=== PATIENT | male | born 1955 | race Asian ===

== ENCOUNTER 2017-09-26 00:09 | Day surgery (SDC) | payer OTHER ==
[~2017-09-26] VITALS: Ht 180.3 cm; Wt 71.2 kg
[~2017-09-26 00:09] MED LIST: CHOLESTEROL MED; SIMV-54 PO
[2017-09-26 06:30] VITALS: BP 124/75
[2017-09-26] MEDS ORDERED: NORMOSOL R SOLN(*) 1000 ML BAG 1,000 ML IV PRN (07:05)
[2017-09-26] MEDS ORDERED: MIDAZOLAM 2 MG/2 ML VIAL IVP PRN (07:05)
[2017-09-26] MEDS ORDERED: LIDOCAINE/SOD BICARB 8.4% SYR ID ONE (07:05)
[2017-09-26 08:48] VITALS: BP 86/52
--- NOTE | 2017-09-26 08:50 | Short(Outpt) Discharge Summary ---
Discharge Summary Reason for Hosp/Final Diag: (1) Colon cancer screening Status: Chronic Hospital Course & Plan: Colonoscopy with polypectomy x2 completed without problems. Departure Discharge to: Home, Self Care Discharge Instructions Home Meds Active Scripts Simvastatin (SIMVASTATIN) 40 Mg Tablet, 1 TAB PO HS, #90 TAB Prov:LM TERRELL MD 07/16/17 Diet: Regular Activity: As Tolerated Special Instructions: Your colonoscopy was completed without any problems and your prep was excellent (Good Job!!). I removed 2 polyps from your colon. We sent these for pathologic analysis and my office will call you in the next week to let you know the pathology results and when your next colonoscopy should be (likely in 5 years). UMM CHEN MD Sep 26, 2017 08:50
[2017-09-26 09:00] VITALS: BP 87/57
[2017-09-26 09:15] VITALS: BP 106/69
[2017-09-26 09:22] VITALS: BP 102/69
[2017-09-26 09:25] VITALS: BP 98/80
== END 2017-09-26 09:50 | disposition home or self-care (01) ==
LOC: OR 00:09
PROVIDERS: ATTEND Surgery
DX: Z12.11 Encounter for screening for malignant neoplasm of colon (principal)
CPT/HCPCS: 88305

== ENCOUNTER → 2018-02-12 | Outpatient (CLI) | payer OTHER ==
[~2018-02-12] MED LIST changes: +LEVO-3 PO; +MOMR ENA
--- NOTE | 2018-02-12 08:58 | RADIOLOGY IMAGING REPORT ---
FACILITY: [facility] PATIENT NAME: Yulissa Cunha : 1955 MR: [id number] V: [id number] EXAM DATE: ORDERING PHYSICIAN: GABBY MCDONNELL TECHNOLOGIST: [place] [facility] [place]: Yulissa Cunha : 1955 Visit/Account:[id number] Date of Sevice: 02/12/2018 EXAMINATION: Abdominal ultrasound complete: 02/12/2018 7:32 AM HISTORY: elevated liver function test. COMPARISON STUDIES: none. FINDINGS: Gallbladder: no stones or sludge. Liver: Normal size. Echogenicity is unremarkable. Capsular contours appear smooth. No focal findin g. Common duct: Under 4 mm Pancreas: Partial obscuration of the tail by bowel gas. Visualized portions are normal. Spleen: Not seen. Kidneys: negative Upper abdominal aorta and IVC: negative Ascites: none IMPRESSION: 1. Unremarkable hepatobiliary assessment by ultrasound. 2. Incomplete visualization of the pancreatic tail. 3. Spleen was not visualized and may be absent. Report Dictated By: Yfn Valle MD at 02/12/2018 8:37 AM Report E-Signed By: Yfn Valle MD at 02/12/2018 8:54 AM WSN:[email or web address]
== END ==
LOC: US 07:29
PROVIDERS: ATTEND Internal Medicine
DX: R79.89 Other specified abnormal findings of blood chemistry (principal); R35.0 Frequency of micturition
CPT/HCPCS: 76700

== ENCOUNTER → 2018-03-12 | Outpatient (CLI) | payer OTHER ==
[~2018-03-12] MED LIST changes: +TRIA15OI20 TP
== END ==
LOC: CARD 13:49
PROVIDERS: ATTEND Internal Medicine
DX: R07.9 Chest pain, unspecified (principal)

== ENCOUNTER → 2018-04-09 | Outpatient (CLI) | payer OTHER ==
[~2018-04-09] MED LIST changes: +REGADENOSON 0.4 MG/5 ML SYR ONE
--- NOTE | 2018-04-09 14:35 | RADIOLOGY IMAGING REPORT ---
[place] [facility] [place] Yulissa Cunha : 1955 MR: [id number] V: [id number] EXAM DATE: ORDERING PHYSICIAN: GABBY MCDONNELL TECHNOLOGIST: Location: [facility] Patient: Yulissa Cunha : 1955 Visit/Account:[id number] Date of Sevice: 04/09/2018 REGADENOSON (LEXISCAN) MYOCARDIAL PERFUSION IMAGING. EXAMINATION: Single isotope SPECT imaging with regadenoson infusion and gated SPECT imaging. DATE OF EXAMINATION: April 09, 2018. REQUESTING PHYSICIAN:KECIA INDICATION: Chest discomfort PROCEDURE: After informed consent the patient received an intravenous injection of Tc-99m sestamibi followed at an appropriate time interval by rest imaging. The patient then subsequently received an intravenous infusion of 0.4 mg of regadenoson per protocol without complication. Resting heart rate was 57 bpm with a peak heart rate of 78 bpm. Blood pressure at rest was 127/83 and following infusi on was 122/77 . Baseline EKG demonstrates sinus rhythm with a right bundle branch block. There were no EKG changes of ischemia following infusion. Non-specific symptoms were reported. The patient th en received an intravenous injection of Tc-99m sestamibi followed by stress imaging. DOSE of Tc-99m sestamibi (mCi): REST: 10.8 STRESS: 29.4 RAW DATA: Examination of the summed raw data revealed a good quality study. MYOCARDIAL PERFUSION: The tomographic images demonstrate normal myocardial perfusion study without e vidence of myocardial ischemia or infarct. GATED IMAGES: The gated images demonstrate normal LV systolic performance and wall motion with LVEF 82%. IMPRESSION: 1. Nondiagnostic ECG portion of Lexiscan stress test. 2. Normal myocardial perfusion study without evidence of myocardial ischemia or infarct 3. Normal LV systolic performance and wall motion with LVEF 82% Report Dictated By: Gonzalez Ford at 04/09/2018 2:24 PM Report E-Signed By: Gonzalez Ford at 04/09/2018 2:30 PM WSN:[id number]
== END ==
LOC: NUC 01:56
PROVIDERS: ATTEND Internal Medicine
DX: R07.89 Other chest pain (principal)
CPT/HCPCS: 78452; 93017; A9500; J2785

== ENCOUNTER → 2018-08-08 | Outpatient (CLI) | payer OTHER ==
[~2018-08-08] MED LIST changes: -REGADENOSON 0.4 MG/5 ML SYR ONE
--- NOTE | 2018-08-09 00:10 | RADIOLOGY IMAGING REPORT ---
FACILITY: [facility] PATIENT NAME: Yulissa Cunha : 1955 MR: [id number] V: [id number] EXAM DATE: ORDERING PHYSICIAN: LM MIGUEL TECHNOLOGIST: Location: [facility] Patient: Yulissa Cunha : 1955 Visit/Account:[id number] Date of Sevice: 08/08/2018 Ultrasound of the bladder: Indication: Urinary retention. Technique: Pre- and post-void imaging of the bladder was performed. Comparison: None. Findings: The pre-void bladder volume was 138 cc. There was a post-void residual of 20 cc. No intraluminal mass, calculus, or focal deformity of the bladder wall is clearly identified. Bilater al ureteral jets were documented. The prostate appears enlarged and lobular in shape. Impression: There was a small post void bladder residual of 20 cc. No intrinsic bladder deformity is identified. The prostate appears enlarged. Report Dictated By: Peter Rojas MD at 08/08/2018 11:58 PM Report E-Signed By: Peter Rojas MD at 08/09/2018 12:06 AM WSN:[id number]
== END ==
LOC: US 08-07 00:57
DX: R39.14 Feeling of incomplete bladder emptying (principal)
CPT/HCPCS: 76705